=== PATIENT | male | born 1955 | race Caucasian/White ===

== ENCOUNTER 2019-06-09 02:45 | Observation (INO) ==
[2019-06-09] MEDS ORDERED: NICOTINE 21 MG/24 HR PATCH TRANSDERM PRN (06:21)
[2019-06-09] MEDS ORDERED: ONDANSETRON 4 MG/2 ML VIAL IV PRN (06:21)
[2019-06-09] MEDS ORDERED: BISACODYL 5 MG TABLET PO PRN (06:21)
[2019-06-09] MEDS: ACETAMINOPHEN 325 MG TABLET PO PRN ×2 (06:37→20:55)
[2019-06-09 07:23] LABS: Basophils # 0.1 10*3/uL (0.0-0.2); Basophils % 0.4 % (0.0-0.8); Eosinophils # 0.2 10*3/uL (0.0-0.87); Eosinophils % 1.4 % (0.00-10.9); Hematocrit 38.5 VOL% (42.0-52.0); Hemoglobin 12.9 GM/DL (14.0-18.0); Immature Granulocytes % 0.3 %; Immature Granulocytes Absolute 0.05 #; Lymphocytes # 6.9 10*3/uL (1.4-4.0); Lymphocytes % 43.1 % (21.2-54.2); Mean Corpuscular HGB Conc 33.5 GM/DL (32-36); Mean Corpuscular Volume 85.6 FL (87-102); Mean Platelet Volume 10.7 FL (9.6-12.0); Monocytes % 6.6 % (1.7-12.7); Neutrophils % 48.2 % (38.7-73.9); Platelet Count 182 T/CUMM (130-400); Red Cell Distribution Width 13.2 % (9.3-17.3)
[2019-06-09 07:54] LABS: Troponin I < 0.015 NG/ML (0.00-0.045)
[2019-06-09 08:01] LABS: Bilirubin,Total 0.4 MG/DL (0.2-1.0); Calcium 8.1 MG/DL (8.5-10.1); Osmolality,Calculated 274.5 MOS/KG (273-304); Risk Ratio 3.65; Thyroid Stimulating Hormone 3.14 uIU/ml (0.358-3.74); Total Protein 6.2 G/DL (6.4-8.3)
[2019-06-09 08:08] LABS: Apearance,Urine CLEAR (Clear); Bilirubin,Urine Negative (Negative); Blood, Urine Negative (Negative); Glucose,Urine (UA) Negative (Negative); Ketones,Urine Negative (Negative); Mucus,Urine Few /LPF (Occasional); Nitrite,Urine Negative (Negative); Protein,Urine Negative; RBC,Urine 8 /HPF (0-4); Urine Color Yellow (Yellow); Urine Specific Gravity 1.013 (1.001-1.035); WBC,Urine 2 /HPF (0-6)
[2019-06-09] MEDS: PANTOPRAZOLE 40 MG TABLET PO SCH (08:48)
[2019-06-09] MEDS: hydrALAZINE 25 MG TABLET PO SCH ×3 (11:24→20:55)
[2019-06-09 13:05] LABS: Troponin I < 0.015 NG/ML (0.00-0.045)
[2019-06-09] MEDS: OMEGA 3 ACID ETHYL ESTERS 1 GM CAPSULE PO SCH (20:54)
[2019-06-09] MEDS ORDERED: ROSUVASTATIN 20 MG TABLET PO SCH (21:00)
[2019-06-09 22:18] LABS: Troponin I < 0.015 NG/ML (0.00-0.045)
[2019-06-10 02:46] LABS: Barbiturates Screen,Urine Negative (Negative); Benzodiazepines Screen,Urine Negative (Negative); Cannabinoid Screen,Urine Negative (Negative); Opiate Screen,Urine Positive (Negative); Phencyclidine Screen,Urine Negative (Negative)
[2019-06-10 08:09] VITALS: BP 164/76
[2019-06-10] MEDS ORDERED: ASPIRIN EC 81 MG TABLET PO SCH (09:00)
[2019-06-10] MEDS: OMEGA 3 ACID ETHYL ESTERS 1 GM CAPSULE PO SCH (09:19)
[2019-06-10] MEDS: PANTOPRAZOLE 40 MG TABLET PO SCH (09:20)
== END 2019-06-10 09:30 | disposition left against medical advice (07) ==
LOC: N.TELEN → SUATTDRO 04:20
PROVIDERS: ADMIT Hospitalist; ATTEND Internal Medicine